=== PATIENT | male | born 1985 | race African-American/Black ===

== ENCOUNTER 2020-09-19 15:17 | Emergency (ER) | payer OTHER ==
[~2020-09-19 15:17] MED LIST: DIVA250T4 PO; QUET100T PO
== END 2020-09-19 15:37 | disposition left against medical advice (07) ==
LOC: ER 15:24
DX: Z53.21 Procedure and treatment not carried out due to patient leaving prior to being seen by health care provider (principal)

== ENCOUNTER 2020-10-17 13:54 | Emergency (ER) | payer OTHER ==
[~2020-10-17] VITALS: Ht 175.3 cm; Wt 45.4 kg
--- NOTE | 2020-10-17 14:40 | NUR ---
Pt directable/cooperative/compliant w/care. Denies any suicidal thoughts at this time states "depressed" Given lunch ate 100%.
--- NOTE | 2020-10-17 15:02 | NUR ---
phleb at bedside for blood drawn. Sent back to the waiting room, patient aware to inform nurses for any changes or needs.
[2020-10-17 15:13] LABS: BASOPHILS # (AUTO) 0.1 /CMM (0.0-0.2); BASOPHILS % (AUTO) 0.6 % (0.0-2.0); EOSINOPHILS % (AUTO) 1.6 % (0.0-6.0); HEMATOCRIT 44 % (39-51); HEMOGLOBIN 14.4 g/dL (13.5-17.5); LYMPHOCYTES # (AUTO) 2.1 /CMM (0.8-4.8); LYMPHOCYTES % (AUTO) 23.3 % (20.0-44.0); MEAN CORPUSCULAR HGB CONC 33 g/dl (31.0-36.0); MEAN CORPUSCULAR VOLUME 88 fL (80-96); MONOCYTES # (AUTO) 0.9 /CMM (0.1-1.30); NEUTROPHILS # (AUTO) 5.9 /CMM (1.8-8.9); NEUTROPHILS % (AUTO) 64.5 % (43.0-81.0); PLATELET COUNT (AUTO) 442 /CMM (150-450); RED BLOOD CELL COUNT(AUTO) 5.03 MIL/uL (4.5-6.0); WHITE BLOOD COUNT (AUTO) 9.2 K/uL (4.3-11.0)
[2020-10-17 15:46] LABS: CALCIUM, SERUM 9.2 mg/dL (8.5-10.1); CARBON DIOXIDE 29 mmol/L (21-32); CHLORIDE 106 mmol/L (98-107); CREATININE 0.8 mg/dL (0.6-1.3); GLUCOSE 90 mg/dL (74-106); POTASSIUM 4.1 mmol/L (3.5-5.1); SODIUM SERUM 143 mmol/L (136-145); UREA NITROGEN, BLOOD 12 mg/dL (7-18)
[2020-10-17 15:47] LABS: ALCOHOL, BLOOD < 3 mg/dL (0-0)
--- NOTE | 2020-10-17 15:58 | NUR ---
COVID RESULT: NEGATIVE
--- NOTE | 2020-10-17 17:00 | NUR ---
Sleeping soundly NO acute distress
--- NOTE | 2020-10-17 17:15 | NUR ---
FAXED CLINICALS AND FACESHEET TO [facility]
--- NOTE | 2020-10-17 18:15 | NUR ---
Called Nita from [facility] intake. Unaware of intake
--- NOTE | 2020-10-17 18:54 | NUR ---
Called Chaitanya Ingram. Will call back with update
--- NOTE | 2020-10-17 20:58 | NUR ---
TRANSFER INFORMATION: PT ACCEPTED AT [facility] PT WILL GO TO UNIT 2 ACCEPTING MD MERRILL PHONE# FOR REPORT
--- NOTE | 2020-10-17 21:28 | NUR ---
CALLED CALL THE CAR, WAS ON HOLD FOR OVER 30 MINUTES
--- NOTE | 2020-10-17 21:29 | NUR ---
CALLED [facility] FOR BLS TO [facility] ETA 2199
--- NOTE | 2020-10-17 22:01 | NUR ---
TRANSPORT AT BEDSIDE REPORT GIVEN TO EMT
--- NOTE | 2020-10-17 22:28 | NUR ---
REPORT GIVEN TO ZEESHAN WONG.
[2020-10-17 22:29] VITALS: BP 127/68
== END 2020-10-17 22:29 ==
LOC: ER 13:56
DX: F31.9 Bipolar disorder, unspecified (principal); Z91.14 Patient's other noncompliance with medication regimen; F17.210 Nicotine dependence, cigarettes, uncomplicated; F15.10 Other stimulant abuse, uncomplicated; Z59.0 Homelessness; F10.10 Alcohol abuse, uncomplicated; Y90.0 Blood alcohol level of less than 20 mg/100 ml; Z20.822 Contact with and (suspected) exposure to COVID-19
CPT/HCPCS: 36415; 80048; 80299; 80307; 80320; 85025; 87426; 99285; 99406; C9803; G0480

== ENCOUNTER 2020-11-15 09:50 | Emergency (ER) | payer OTHER ==
[~2020-11-15] VITALS: Ht 175.3 cm; Wt 68.0 kg
--- NOTE | 2020-11-15 09:50 | NUR ---
PT BIB SELF C/O DEPRESSED AND FEELING SUICIDAL, +PLAN, "JUMP OFF THE ROOF." PT IS AAOX4, NOT IN RESPIRATORY DISTRESS, V/S STABLE, KEPT RESTED AND COMFORTABLE. WILL CONTINUE TO MONITOR. Addendum: 11/15/20 at 2130 by [email or web address] Pictorious PHONE NUMBER IS
--- NOTE | 2020-11-15 10:08 | NUR ---
URINE SPECIMEN COLLECTED AND SENT TO LAB.
[2020-11-15 10:47] LABS: BILIRUBIN,URINE SMALL (NEGATIVE); COLOR,URINE YELLOW (YELLOW); LEUKOCYTE ESTERASE ,URINE Negative (NEGATIVE); NITRITE, URINE Negative (NEGATIVE); PROTEIN,URINE Trace mg/dl (NEGATIVE); UGLUCOSE Negative (NEGATIVE)
[2020-11-15 11:09] LABS: BASOPHILS % (AUTO) 0.5 % (0.0-2.0); EOSINOPHILS % (AUTO) 1.5 % (0.0-6.0); HEMATOCRIT 47 % (39-51); HEMOGLOBIN 15.4 g/dL (13.5-17.5); LYMPHOCYTES # (AUTO) 1.5 /CMM (0.8-4.8); LYMPHOCYTES % (AUTO) 22.5 % (20.0-44.0); MEAN CORPUSCULAR HGB CONC 33 g/dl (31.0-36.0); MEAN CORPUSCULAR VOLUME 89 fL (80-96); MONOCYTES # (AUTO) 0.7 /CMM (0.1-1.30); MONOCYTES % (AUTO) 10.7 % (2.0-12.0); NEUTROPHILS # (AUTO) 4.2 /CMM (1.8-8.9); NEUTROPHILS % (AUTO) 64.8 % (43.0-81.0); PLATELET COUNT (AUTO) 313 /CMM (150-450); RED BLOOD CELL COUNT(AUTO) 5.29 MIL/uL (4.5-6.0); WHITE BLOOD COUNT (AUTO) 6.5 K/uL (4.3-11.0)
[2020-11-15 11:10] LABS: BACTERIA,URINE Rare /HPF (None Seen); RBC,URINE NONE SEEN /HPF (0-2); SQUAMOUS EPITHELIAL CELL,UR Few /HPF (None Seen); WBC,URINE NONE SEEN /HPF (0-3)
[2020-11-15 11:18] LABS: CARBON DIOXIDE 26 mmol/L (21-32); CHLORIDE 104 mmol/L (98-107); CREATININE 0.9 mg/dL (0.6-1.3); GLUCOSE 89 mg/dL (74-106); POTASSIUM 4.2 mmol/L (3.5-5.1); SODIUM SERUM 140 mmol/L (136-145); UREA NITROGEN, BLOOD 14 mg/dL (7-18)
[2020-11-15 11:23] LABS: ACETAMINOPHEN < 2 ug/ml (10-30); ALANINE AMINOTRANSFERASE 42 U/L (12-78); ALBUMIN 4.3 g/dL (3.4-5.0); ALCOHOL, BLOOD < 3 mg/dL (0-0); ALKALINE PHOSPHATASE 91 U/L (46-116); ASPARTATE AMINOTRANSFERASE 34 U/L (15-37); BILIRUBIN,DIRECT 0.2 mg/dL (0.0-0.2); BILIRUBIN,TOTAL 1.1 mg/dL (0.2-1.0); TOTAL PROTEIN, SERUM 7.9 g/dL (6.4-8.2)
--- NOTE | 2020-11-15 12:08 | NUR ---
LAB CALLED PT COVID RESULT NEGATIVE (-).
--- NOTE | 2020-11-15 19:42 | NUR ---
[facility]. PER ART, PT ACCEPTED AWAITING TRANSFER INFO.
--- NOTE | 2020-11-15 19:50 | NUR ---
The patient is accepted to [facility] under [facility]. Strong Unit 2. For report call [phone]
--- NOTE | 2020-11-15 19:51 | NUR ---
[facility]
--- NOTE | 2020-11-15 20:20 | NUR ---
CALL THE CAR CALLED. CONFIRMATION # [id number]
--- NOTE | 2020-11-15 21:29 | NUR ---
RECEIVED CALL FROM [facility] REPORTING THAT WEARING APPAREL ASSEMBLER WILL BE HERE AROUND 22:30
--- NOTE | 2020-11-15 22:20 | NUR ---
Gladis thompson in [facility] - 11/15/20 at 2226 by JENS Malaika at the bedside.
--- NOTE | 2020-11-16 00:22 | NUR ---
REPORT GIVEN TO SURENDRA ROSADO FOR RAUL
[2020-11-16 00:24] VITALS: BP 121/84
--- NOTE | 2020-11-16 00:30 | NUR ---
PT TRANSFERRED TO [facility] IN STABLE CONDITION. VSS.
== END 2020-11-16 00:56 ==
LOC: ER 09:55
DX: F99 Mental disorder, not otherwise specified (principal); R45.851 Suicidal ideations; Z59.0 Homelessness; F31.9 Bipolar disorder, unspecified; Z79.899 Other long term (current) drug therapy; Z20.822 Contact with and (suspected) exposure to COVID-19
CPT/HCPCS: 36415; 80048; 80076; 80299; 80307; 80320; 81001; 85025; 87426; 99285; C9803; G0480

== ENCOUNTER 2020-12-02 19:36 | Emergency (ER) | payer OTHER ==
[~2020-12-02] VITALS: Ht 175.3 cm; Wt 68.0 kg
[2020-12-02 20:28] LABS: BASOPHILS % (AUTO) 0.5 % (0.0-2.0); EOSINOPHILS % (AUTO) 1.4 % (0.0-6.0); HEMATOCRIT 44 % (39-51); HEMOGLOBIN 14.5 g/dL (13.5-17.5); LYMPHOCYTES # (AUTO) 2.5 /CMM (0.8-4.8); LYMPHOCYTES % (AUTO) 33.6 % (20.0-44.0); MEAN CORPUSCULAR HGB CONC 33 g/dl (31.0-36.0); MEAN CORPUSCULAR VOLUME 90 fL (80-96); MONOCYTES # (AUTO) 1.1 /CMM (0.1-1.30); MONOCYTES % (AUTO) 15.1 % (2.0-12.0); NEUTROPHILS # (AUTO) 3.7 /CMM (1.8-8.9); NEUTROPHILS % (AUTO) 49.4 % (43.0-81.0); PLATELET COUNT (AUTO) 391 /CMM (150-450); RED BLOOD CELL COUNT(AUTO) 4.87 MIL/uL (4.5-6.0); WHITE BLOOD COUNT (AUTO) 7.5 K/uL (4.3-11.0)
[2020-12-02 20:35] LABS: BILIRUBIN,URINE MODERATE (NEGATIVE); COLOR,URINE DARK YELLOW (YELLOW); LEUKOCYTE ESTERASE ,URINE NEGATIVE (NEGATIVE); NITRITE, URINE NEGATIVE (NEGATIVE); PROTEIN,URINE NEGATIVE (NEGATIVE); UGLUCOSE NEGATIVE (NEGATIVE)
[2020-12-02 20:45] LABS: BACTERIA,URINE Rare /HPF (None Seen); RBC,URINE 0-2 /HPF (0-2); SQUAMOUS EPITHELIAL CELL,UR Rare /HPF (None Seen); WBC,URINE 0-2 /HPF (0-3)
[2020-12-02 21:43] LABS: ALBUMIN 3.8 g/dL (3.4-5.0); CARBON DIOXIDE 29 mmol/L (21-32); CHLORIDE 104 mmol/L (98-107); CREATININE 1.1 mg/dL (0.6-1.3); GLUCOSE 189 mg/dL (74-106); POTASSIUM 3.8 mmol/L (3.5-5.1); SODIUM SERUM 141 mmol/L (136-145); UREA NITROGEN, BLOOD 14 mg/dL (7-18)
[2020-12-02 22:03] LABS: ALANINE AMINOTRANSFERASE 33 U/L (12-78); ALCOHOL, BLOOD < 3 mg/dL (0-0); ALKALINE PHOSPHATASE 83 U/L (46-116); ASPARTATE AMINOTRANSFERASE 31 U/L (15-37); BILIRUBIN,DIRECT 0.1 mg/dL (0.0-0.2); BILIRUBIN,TOTAL 0.6 mg/dL (0.2-1.0); TOTAL PROTEIN, SERUM 7.1 g/dL (6.4-8.2)
[2020-12-02 22:04] LABS: ACETAMINOPHEN < 0 ug/ml (10-30)
[2020-12-03 03:33] VITALS: BP 132/70
== END 2020-12-03 07:31 ==
LOC: ER 19:40
DX: R45.851 Suicidal ideations (principal); F19.10 Other psychoactive substance abuse, uncomplicated; F31.9 Bipolar disorder, unspecified; Z90.81 Acquired absence of spleen; Z91.14 Patient's other noncompliance with medication regimen; Z59.0 Homelessness; F17.200 Nicotine dependence, unspecified, uncomplicated; Z79.899 Other long term (current) drug therapy; Z20.822 Contact with and (suspected) exposure to COVID-19
CPT/HCPCS: 36415; 80048; 80076; 80143; 80307; 80320; 81001; 85025; 87426; 99285; C9803; A6403; G0480

== ENCOUNTER 2021-01-23 02:38 | Emergency (ER) | payer OTHER ==
--- NOTE | 2021-01-23 03:02 | NUR ---
CALLED TO TRIAGE, NOT IN WAITING ROOM.
--- NOTE | 2021-01-23 03:20 | NUR ---
CALLED FOR TRIAGE, NOT IN WAITING ROOM.
--- NOTE | 2021-01-23 03:46 | NUR ---
PT REFUSED TO BE SEEN, REQUESTED FOR A BLANKET.
== END 2021-01-23 03:48 | disposition home or self-care (01) ==
LOC: ER 02:42
DX: Z53.21 Procedure and treatment not carried out due to patient leaving prior to being seen by health care provider (principal)

== ENCOUNTER 2021-01-24 07:02 | Emergency (ER) | payer OTHER ==
[~2021-01-24] VITALS: Ht 175.3 cm; Wt 68.0 kg
--- NOTE | 2021-01-24 07:14 | NUR ---
ER PHLEB AT BEDSIDE FOR BLOOD DRAW
--- NOTE | 2021-01-24 07:14 | NUR ---
PT AAOX4, BIBSELF C/O SI WITH PLAN TO JUMP IN FRONT OF TRAFFIC. -HI. REQUESTING VOLUNTARY PSYCH ADMISSION AT [facility]. PLACED IN BED 13 IN GOWN, ON MONITOR, AND PULSE OX. BELONINGS PLACED IN LOCKER. PT UNABLE TO PROVIDE URINE SAMPLE AT THIS TIME. AWAITING ER MD FOR EVAL AND ORDERS.
--- NOTE | 2021-01-24 07:38 | NUR ---
COVID SPECIMEN OBTAINED AND SENT TO LAB.
[2021-01-24 08:00] LABS: BASOPHILS # (AUTO) 0.1 K/uL (0.0-0.2); BASOPHILS % (AUTO) 0.6 % (0.0-2.0); EOSINOPHILS % (AUTO) 1.1 % (0.0-6.0); HEMATOCRIT 44 % (39-51); HEMOGLOBIN 14.3 g/dL (13.5-17.5); LYMPHOCYTES # (AUTO) 1.4 K/uL (0.8-4.8); LYMPHOCYTES % (AUTO) 14.2 % (20.0-44.0); MEAN CORPUSCULAR HGB CONC 33 g/dl (31.0-36.0); MEAN CORPUSCULAR VOLUME 91 fL (80-96); MONOCYTES # (AUTO) 0.9 K/uL (0.1-1.30); MONOCYTES % (AUTO) 9.6 % (2.0-12.0); NEUTROPHILS # (AUTO) 7.4 K/uL (1.8-8.9); NEUTROPHILS % (AUTO) 74.5 % (43.0-81.0); PLATELET COUNT (AUTO) 304 K/uL (150-450); RED BLOOD CELL COUNT(AUTO) 4.79 MIL/uL (4.5-6.0); WHITE BLOOD COUNT (AUTO) 9.9 K/uL (4.3-11.0)
[2021-01-24 08:10] LABS: ACETAMINOPHEN < 2 ug/ml (10-30); ALANINE AMINOTRANSFERASE 25 U/L (12-78); ALBUMIN 3.5 g/dL (3.4-5.0); ALCOHOL, BLOOD < 3 mg/dL (0-0); ALKALINE PHOSPHATASE 91 U/L (46-116); ASPARTATE AMINOTRANSFERASE 19 U/L (15-37); BILIRUBIN,DIRECT 0.1 mg/dL (0.0-0.2); BILIRUBIN,TOTAL 0.4 mg/dL (0.2-1.0); CALCIUM, SERUM 8.5 mg/dL (8.5-10.1); CARBON DIOXIDE 27 mmol/L (21-32); CHLORIDE 106 mmol/L (98-107); CREATININE 0.9 mg/dL (0.6-1.3); GLUCOSE 101 mg/dL (74-106); POTASSIUM 3.8 mmol/L (3.5-5.1); SODIUM SERUM 141 mmol/L (136-145); TOTAL PROTEIN, SERUM 6.6 g/dL (6.4-8.2); UREA NITROGEN, BLOOD 7 mg/dL (7-18)
[2021-01-24 09:00] LABS: BILIRUBIN,URINE Negative (NEGATIVE); COLOR,URINE YELLOW (YELLOW); LEUKOCYTE ESTERASE ,URINE Negative (NEGATIVE); NITRITE, URINE Negative (NEGATIVE); PROTEIN,URINE Negative (NEGATIVE); UGLUCOSE Negative (NEGATIVE)
[2021-01-24 09:05] LABS: BACTERIA,URINE Rare /HPF (None Seen); RBC,URINE NONE SEEN /HPF (0-2); SQUAMOUS EPITHELIAL CELL,UR Few /HPF (None Seen); WBC,URINE NONE SEEN /HPF (0-3)
--- NOTE | 2021-01-24 12:10 | NUR ---
LUNCH TRAY PROVIDED.
--- NOTE | 2021-01-24 16:32 | NUR ---
ASSESSED PT ON BED ASLEEP NOT IN RESPIRATORY DISTRESS, V/S STABLE, KEPT RESTED AND COMFORTABLE. WILL CONTINUE TO MONITOR.
--- NOTE | 2021-01-24 17:09 | NUR ---
[facility]
--- NOTE | 2021-01-24 19:43 | NUR ---
accepted at [facility] under Dr. Lerner. call report [phone] ext [phone]
--- NOTE | 2021-01-24 19:48 | NUR ---
CALLED [facility] FOR TRANSPORT ETA [phone] PER ROBERTO
--- NOTE | 2021-01-24 21:22 | NUR ---
REPORT GIVEN TO MERLYN NURSE AT [facility]
[2021-01-24 22:10] VITALS: BP 122/70
--- NOTE | 2021-01-24 22:30 | NUR ---
PT LEFT [facility], REPORT GIVEN TO STAFF. NOT IN ACUTE DISTRESS, ALL BELONGINGS WITH TRANSPORT
== END 2021-01-24 23:06 ==
LOC: ER 07:10
DX: R45.851 Suicidal ideations (principal); F19.10 Other psychoactive substance abuse, uncomplicated; Z59.0 Homelessness; Z20.822 Contact with and (suspected) exposure to COVID-19; F17.200 Nicotine dependence, unspecified, uncomplicated; F31.9 Bipolar disorder, unspecified
CPT/HCPCS: 36415; 80048; 80076; 80143; 80307; 80320; 81001; 85025; 87426; 99285; C9803; G0480

== ENCOUNTER 2021-02-20 09:43 | Emergency (ER) | payer OTHER ==
[~2021-02-20] VITALS: Ht 180.3 cm; Wt 68.0 kg
--- NOTE | 2021-02-20 10:30 | NUR ---
Pt easily directable and cooperative. Asking for food. Given breakfast ate 100%. Medical clearance protocol (UA/Labs) for voluntary admit to psych facility initiated
[2021-02-20 10:50] LABS: BASOPHILS # (AUTO) 0.1 K/uL (0.0-0.2); HEMOGLOBIN 14.7 g/dL (13.5-17.5); LYMPHOCYTES # (AUTO) 1.8 K/uL (0.8-4.8); NEUTROPHILS # (AUTO) 5.5 K/uL (1.8-8.9); WHITE BLOOD COUNT (AUTO) 7.9 K/uL (4.3-11.0)
[2021-02-20 10:53] LABS: BASOPHILS % (AUTO) 1.1 % (0.0-2.0); EOSINOPHILS % (AUTO) 0.8 % (0.0-6.0); HEMATOCRIT 44 % (39-51); MEAN CORPUSCULAR HGB CONC 34 g/dl (31.0-36.0); MEAN CORPUSCULAR VOLUME 90 fL (80-96); MONOCYTES # (AUTO) 0.5 K/uL (0.1-1.30); MONOCYTES % (AUTO) 5.8 % (2.0-12.0); NEUTROPHILS % (AUTO) 69.3 % (43.0-81.0); PLATELET COUNT (AUTO) 483 K/uL (150-450); RED BLOOD CELL COUNT(AUTO) 4.89 MIL/uL (4.5-6.0)
[2021-02-20 11:01] LABS: BILIRUBIN,URINE Negative (NEGATIVE); COLOR,URINE YELLOW (YELLOW); LEUKOCYTE ESTERASE ,URINE Negative (NEGATIVE); NITRITE, URINE Negative (NEGATIVE); PROTEIN,URINE Negative (NEGATIVE); UGLUCOSE Negative (NEGATIVE)
[2021-02-20 11:02] LABS: CARBON DIOXIDE 27 mmol/L (21-32); CHLORIDE 103 mmol/L (98-107); GLUCOSE 224 mg/dL (74-106); SODIUM SERUM 140 mmol/L (136-145); UREA NITROGEN, BLOOD 10 mg/dL (7-18)
[2021-02-20 11:07] LABS: ACETAMINOPHEN 0 ug/ml (10-30); ALANINE AMINOTRANSFERASE 21 U/L (12-78); ALBUMIN 3.6 g/dL (3.4-5.0); ALCOHOL, BLOOD < 3 mg/dL (0-0); ALKALINE PHOSPHATASE 112 U/L (46-116); ASPARTATE AMINOTRANSFERASE 14 U/L (15-37); BILIRUBIN,DIRECT 0.1 mg/dL (0.0-0.2); BILIRUBIN,TOTAL 0.4 mg/dL (0.2-1.0); TOTAL PROTEIN, SERUM 7.4 g/dL (6.4-8.2)
[2021-02-20 11:20] LABS: BACTERIA,URINE Few /HPF (None Seen); MUCUS,URINE Few /LPF (None Seen); RBC,URINE 0-2 /HPF (0-2); SQUAMOUS EPITHELIAL CELL,UR Few /HPF (None Seen); WBC,URINE 0-2 /HPF (0-3)
--- NOTE | 2021-02-20 11:34 | NUR ---
Product Marketer Consultation: Product Marketer consultation requested for SI. Patient is a 35 year old male. Per ED summary report, patient came to the ED reporting suicidal thoughts of wanting to get hit by a car. This PHOTOGRAMMETRY AIRPLANE PILOT met with patient in the ED. Patient was cooperative and receptive to speaking with this PHOTOGRAMMETRY AIRPLANE PILOT. Patient reports having suicidal thoughts of wanting to run into traffic and get hit by a car. Patient denies HI. Patient denies hallucinations. Patient is homeless, and presents unkempt. Patient reports hx of psychiatric hospitalizations, and stated that he wants to go to a psychiatric hospital again. Patient expressed agreement for voluntary admission to an inpatient psychiatric hospital. Patient reports being diagnosed with Bipolar Disorder, and being prescribed Seroquel, but expressed not being consistent with taking his medication. 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 Per patient's toxicology report, patient is positive for amphetamines and marijuana. This PHOTOGRAMMETRY AIRPLANE PILOT offered patient homeless community resources, and patient was in agreement to receive these resources. PLAN: This PHOTOGRAMMETRY AIRPLANE PILOT to refer patient to [facility] for voluntary psychiatric inpatient admission, and will fax patient's clinicals to [facility]. This PHOTOGRAMMETRY AIRPLANE PILOT will provide patient with homeless community resources.
--- NOTE | 2021-02-20 11:42 | NUR ---
Contact Person note: This AUTO REFINISHER faxed patient's clinicals to Delbert at [facility], tel # [phone], fax # [phone]. Pending admission to [facility]. Once admitted, patient will be transported via ambulance.
[2021-02-20 11:46] LABS: EOSINOPHILS % (MANUAL) 1 % (0-4); LYMPHOCYTES % (MANUAL) 23 % (16-48); MONOCYTES % (MANUAL) 4 % (0-11.0); NEUTROPHILS % (MANUAL) 72 (42-76)
--- NOTE | 2021-02-20 12:16 | NUR ---
Collection Support Specialist note: This WATER FILTERER HELPER met with the patient and provided him with the homeless resource packet, which includes a list of homeless shelters, places for meals and showers, food pantries, resources for medical clinics, mental health clinics, pharmacies, and substance abuse treatment programs. Patient signed the homeless patient waiver form. This WATER FILTERER HELPER gave the homeless patient waiver form to MEREDITH Schmidt to file in patient's chart. MEREDITH Schmidt also informed that this WATER FILTERER HELPER has faxed all clinicals to [facility] for admission. Roxana stated she would follow-up.
--- NOTE | 2021-02-20 13:00 | NUR ---
Dozing on/off NO obvious distress. Given Lunch Ate 100%
--- NOTE | 2021-02-20 14:17 | NUR ---
CALLED [facility] FOR TRANSPORT TO [facility]. ETA 45-60 MINUTES.
--- NOTE | 2021-02-20 14:38 | NUR ---
REPORT GIVEN TO NURSE BROOKS
--- NOTE | 2021-02-20 15:17 | NUR ---
Transfer Information: Voluntary Transport to Psych facility So[facility] Dereck Olson MD: Shane Report to: Codey Condition: Stable,VSS Transporting Unit: [facility], EMT Abraham Pt aware of transfer and concurs w/plan of care
[2021-02-20 15:19] VITALS: BP 143/81
== END 2021-02-20 15:20 ==
LOC: ER 14:12
DX: R45.851 Suicidal ideations (principal); F31.9 Bipolar disorder, unspecified; F19.10 Other psychoactive substance abuse, uncomplicated; F15.10 Other stimulant abuse, uncomplicated; F12.10 Cannabis abuse, uncomplicated; Z59.0 Homelessness; R73.9 Hyperglycemia, unspecified; Z20.822 Contact with and (suspected) exposure to COVID-19
CPT/HCPCS: 36415; 80048; 80076; 80143; 80307; 80320; 81001; 85007; 85025; 87426; 99285; C9803; G0480

== ENCOUNTER 2021-03-11 12:13 | Emergency (ER) | payer OTHER ==
[~2021-03-11] VITALS: Ht 175.3 cm; Wt 68.0 kg
--- NOTE | 2021-03-11 12:43 | NUR ---
CALLED IN ED WAITING ROOM. NO RESPONSE.
[2021-03-11 13:33] LABS: BASOPHILS % (AUTO) 0.7 % (0.0-2.0); EOSINOPHILS % (AUTO) 2.3 % (0.0-6.0); HEMATOCRIT 41 % (39-51); HEMOGLOBIN 13.5 g/dL (13.5-17.5); LYMPHOCYTES # (AUTO) 1.8 K/uL (0.8-4.8); LYMPHOCYTES % (AUTO) 29.9 % (20.0-44.0); MEAN CORPUSCULAR HGB CONC 33 g/dl (31.0-36.0); MEAN CORPUSCULAR VOLUME 91 fL (80-96); MONOCYTES # (AUTO) 0.7 K/uL (0.1-1.30); MONOCYTES % (AUTO) 11.3 % (2.0-12.0); NEUTROPHILS # (AUTO) 3.3 K/uL (1.8-8.9); NEUTROPHILS % (AUTO) 55.8 % (43.0-81.0); PLATELET COUNT (AUTO) 369 K/uL (150-450); RED BLOOD CELL COUNT(AUTO) 4.52 MIL/uL (4.5-6.0); WHITE BLOOD COUNT (AUTO) 5.9 K/uL (4.3-11.0)
[2021-03-11 14:05] VITALS: BP 126/84
[2021-03-11 14:19] LABS: ALANINE AMINOTRANSFERASE 33 U/L (12-78); ALBUMIN 3.8 g/dL (3.4-5.0); ALKALINE PHOSPHATASE 84 U/L (46-116); ASPARTATE AMINOTRANSFERASE 22 U/L (15-37); BILIRUBIN,DIRECT 0.1 mg/dL (0.0-0.2); BILIRUBIN,TOTAL 0.4 mg/dL (0.2-1.0); CALCIUM, SERUM 8.4 mg/dL (8.5-10.1); CARBON DIOXIDE 30 mmol/L (21-32); CHLORIDE 106 mmol/L (98-107); GLUCOSE 93 mg/dL (74-106); POTASSIUM 3.7 mmol/L (3.5-5.1); SODIUM SERUM 143 mmol/L (136-145); UREA NITROGEN, BLOOD 15 mg/dL (7-18)
[2021-03-11 14:22] LABS: ACETAMINOPHEN 0 ug/ml (10-30)
[2021-03-11 15:02] LABS: ALCOHOL, BLOOD < 3 mg/dL (0-0)
== END 2021-03-11 14:06 | disposition left against medical advice (07) ==
LOC: ER 12:16
DX: R45.851 Suicidal ideations (principal); F32.9 Major depressive disorder, single episode, unspecified; F17.200 Nicotine dependence, unspecified, uncomplicated; Z59.0 Homelessness; Z79.899 Other long term (current) drug therapy
CPT/HCPCS: 36415; 80048-TC; 80076-TC; 85025-TC; G0480

== ENCOUNTER 2021-03-11 16:47 | Emergency (ER) | payer OTHER ==
[~2021-03-11] VITALS: Ht 175.3 cm; Wt 74.4 kg
--- NOTE | 2021-03-11 17:10 | NUR ---
MINERVA KIM AT BEDSIDE FOR EVAL.
--- NOTE | 2021-03-11 17:18 | NUR ---
SELF PRESENTS TO ED REQUESTING FOR VOLUNTARY PSYCH ADMISSION TO [facility]. C/O SUICIDAL IDEATION X "FOR A WHILE NOW" W/ PLAN TO RUN INTO TRAFFIC. DENIES HI. DENIES ANY MEDICAL COMPLAINT AT THIS TIME. STABLE VITALS. AWAITING MD MCFARLAND.
--- NOTE | 2021-03-11 18:08 | NUR ---
ECONOMICS ANALYST AT BEDSIDE FOR BLOOD DRAW.
--- NOTE | 2021-03-11 18:12 | NUR ---
COVID SWAB DONE AND SENT TO LAB
[2021-03-11 18:29] LABS: BILIRUBIN,URINE SMALL (NEGATIVE); COLOR,URINE YELLOW (YELLOW); LEUKOCYTE ESTERASE ,URINE NEGATIVE (NEGATIVE); NITRITE, URINE NEGATIVE (NEGATIVE); PROTEIN,URINE NEGATIVE (NEGATIVE); UGLUCOSE NEGATIVE (NEGATIVE)
[2021-03-11 18:31] LABS: BASOPHILS % (AUTO) 0.6 % (0.0-2.0); EOSINOPHILS % (AUTO) 4.2 % (0.0-6.0); HEMATOCRIT 41 % (39-51); HEMOGLOBIN 13.3 g/dL (13.5-17.5); LYMPHOCYTES # (AUTO) 2.8 K/uL (0.8-4.8); MEAN CORPUSCULAR HGB CONC 33 g/dl (31.0-36.0); MEAN CORPUSCULAR VOLUME 92 fL (80-96); MONOCYTES # (AUTO) 0.8 K/uL (0.1-1.30); MONOCYTES % (AUTO) 11.4 % (2.0-12.0); NEUTROPHILS # (AUTO) 2.8 K/uL (1.8-8.9); NEUTROPHILS % (AUTO) 41.8 % (43.0-81.0); PLATELET COUNT (AUTO) 364 K/uL (150-450); RED BLOOD CELL COUNT(AUTO) 4.41 MIL/uL (4.5-6.0); WHITE BLOOD COUNT (AUTO) 6.7 K/uL (4.3-11.0)
[2021-03-11 18:50] LABS: ALANINE AMINOTRANSFERASE 26 U/L (12-78); ALBUMIN 3.5 g/dL (3.4-5.0); ALKALINE PHOSPHATASE 81 U/L (46-116); ASPARTATE AMINOTRANSFERASE 23 U/L (15-37); BILIRUBIN,DIRECT 0.1 mg/dL (0.0-0.2); BILIRUBIN,TOTAL 0.3 mg/dL (0.2-1.0); TOTAL PROTEIN, SERUM 6.7 g/dL (6.4-8.2)
[2021-03-11 18:54] LABS: CALCIUM, SERUM 8.4 mg/dL (8.5-10.1); CARBON DIOXIDE 27 mmol/L (21-32); CHLORIDE 104 mmol/L (98-107); CREATININE 0.9 mg/dL (0.6-1.3); GLUCOSE 168 mg/dL (74-106); POTASSIUM 3.8 mmol/L (3.5-5.1); SODIUM SERUM 140 mmol/L (136-145); UREA NITROGEN, BLOOD 15 mg/dL (7-18)
[2021-03-11 19:00] LABS: ALCOHOL, BLOOD < 3 mg/dL (0-0)
[2021-03-11 19:33] LABS: ACETAMINOPHEN < 2 ug/ml (10-30)
--- NOTE | 2021-03-11 22:14 | NUR ---
FACESHEET AND CLINICALS FAXED TO [facility].
--- NOTE | 2021-03-11 23:25 | NUR ---
PT ACCEPTED TO [facility] BY [facility] MERRILL. # FOR REPORT [phone]
--- NOTE | 2021-03-11 23:37 | NUR ---
[facility] CALL THE CAR CALLED FOR TRANSPORT. TRIP#[id number]
--- NOTE | 2021-03-11 23:43 | NUR ---
[facility] ETA 0110
--- NOTE | 2021-03-12 02:18 | NUR ---
REPORT GIVEN TO GISELL HARPER FOR CONTINUATION OF CARE.
--- NOTE | 2021-03-12 03:55 | NUR ---
[facility] AT BED SIDE TO FREIGHT COORDINATOR THE PT. REPORT GIVEN
[2021-03-12 03:56] VITALS: BP 135/88
== END 2021-03-12 03:57 ==
LOC: ER 16:51
DX: R45.851 Suicidal ideations (principal); F31.9 Bipolar disorder, unspecified; F19.10 Other psychoactive substance abuse, uncomplicated; Z20.822 Contact with and (suspected) exposure to COVID-19; Z59.0 Homelessness
CPT/HCPCS: 36415; 80048; 80076; 80143; 80307; 80320; 81003; 85025; 87426; 99285; C9803; G0480

== ENCOUNTER 2021-04-13 12:16 | Emergency (ER) | payer OTHER ==
[~2021-04-13] VITALS: Ht 170.2 cm; Wt 74.8 kg
[2021-04-13 12:58] LABS: BILIRUBIN,URINE Negative (NEGATIVE); COLOR,URINE YELLOW (YELLOW); LEUKOCYTE ESTERASE ,URINE Negative (NEGATIVE); NITRITE, URINE Negative (NEGATIVE); PROTEIN,URINE Negative (NEGATIVE); UGLUCOSE Negative (NEGATIVE)
[2021-04-13 13:09] LABS: BACTERIA,URINE Rare /HPF (None Seen); RBC,URINE 0-2 /HPF (0-2); SQUAMOUS EPITHELIAL CELL,UR 0-2 /HPF (None Seen); WBC,URINE 0-2 /HPF (0-3)
[2021-04-13 13:11] LABS: BASOPHILS # (AUTO) 0.1 K/uL (0.0-0.2); BASOPHILS % (AUTO) 0.9 % (0.0-2.0); EOSINOPHILS % (AUTO) 0.8 % (0.0-6.0); HEMATOCRIT 44 % (39-51); HEMOGLOBIN 14.5 g/dL (13.5-17.5); LYMPHOCYTES # (AUTO) 2.1 K/uL (0.8-4.8); LYMPHOCYTES % (AUTO) 20.9 % (20.0-44.0); MEAN CORPUSCULAR HGB CONC 33 g/dl (31.0-36.0); MEAN CORPUSCULAR VOLUME 91 fL (80-96); MONOCYTES % (AUTO) 9.6 % (2.0-12.0); NEUTROPHILS # (AUTO) 6.8 K/uL (1.8-8.9); NEUTROPHILS % (AUTO) 67.8 % (43.0-81.0); PLATELET COUNT (AUTO) 378 K/uL (150-450); RED BLOOD CELL COUNT(AUTO) 4.87 MIL/uL (4.5-6.0)
[2021-04-13 13:21] LABS: CALCIUM, SERUM 8.7 mg/dL (8.5-10.1); CARBON DIOXIDE 28 mmol/L (21-32); CHLORIDE 105 mmol/L (98-107); CREATININE 0.9 mg/dL (0.6-1.3); GLUCOSE 90 mg/dL (74-106); POTASSIUM 3.9 mmol/L (3.5-5.1); SODIUM SERUM 140 mmol/L (136-145); UREA NITROGEN, BLOOD 9 mg/dL (7-18)
[2021-04-13 13:34] LABS: ALANINE AMINOTRANSFERASE 24 U/L (12-78); ALBUMIN 3.6 g/dL (3.4-5.0); ALCOHOL, BLOOD < 3 mg/dL (0-0); ALKALINE PHOSPHATASE 98 U/L (46-116); BILIRUBIN,DIRECT 0.1 mg/dL (0.0-0.2); BILIRUBIN,TOTAL 0.6 mg/dL (0.2-1.0); TOTAL PROTEIN, SERUM 7.3 g/dL (6.4-8.2)
[2021-04-13 13:42] LABS: ACETAMINOPHEN < 10 ug/ml (10-30)
[2021-04-13 13:55] LABS: ASPARTATE AMINOTRANSFERASE 19 U/L (15-37)
--- NOTE | 2021-04-13 15:29 | NUR ---
Patient came in to the er c/o suicidal ideation with plan to cut wrist. Requesting vol admission to [facility]. On room air, breathign evenly and unlabored. Kept comfortable, will continue to monitor accordingly.
--- NOTE | 2021-04-13 16:08 | NUR ---
FAXED FACE SHEET AND LABS TO [facility].
--- NOTE | 2021-04-13 22:35 | NUR ---
SPOKE TO ART AT [facility]. STILL WORKING ON THE ACCEPTANCE
--- NOTE | 2021-04-13 23:18 | NUR ---
pt sitting quietly watching tv. vss
--- NOTE | 2021-04-14 00:50 | NUR ---
Patient is resting comfortably in bed with eyes closed. Easily aroused. VSS
--- NOTE | 2021-04-14 01:30 | NUR ---
pt sitting quietly watching tv. vss
--- NOTE | 2021-04-14 02:25 | NUR ---
pt sitting quietly watching tv. vss
--- NOTE | 2021-04-14 04:24 | NUR ---
pt sleeping, attached to monitor and pox. vss
--- NOTE | 2021-04-14 06:48 | NUR ---
pt sleeping, attached to monitor and pox
--- NOTE | 2021-04-14 10:13 | NUR ---
FAXED COVID RESULT TO INTAKE
--- NOTE | 2021-04-14 10:44 | NUR ---
AWAITING ACCEPTANCE TO [facility] UNDER REVIEW PER LEXI.
--- NOTE | 2021-04-14 11:08 | NUR ---
PT ACCEPTED TO [facility] PT STATES I [facility] GO [facility]. AWAITING ACCEPTANCE.
--- NOTE | 2021-04-14 14:55 | NUR ---
[facility] called [facility] reharding status of admission and they request COVID test results. [facility] faxed covid results. Pt. has been accepted and they will call ED with details of admission.
--- NOTE | 2021-04-14 15:05 | NUR ---
going to [facility] under [facility] dubose
--- NOTE | 2021-04-14 15:05 | NUR ---
rob to unit II. [phone] ext [phone]
--- NOTE | 2021-04-14 15:06 | NUR ---
[facility] CALLED WITH ETA OF 45 MINS PER DONOVAN.
--- NOTE | 2021-04-14 15:30 | NUR ---
REPORT GIVEN TO CHAI HARPER. AWAITING TRANSFER TO FLOOR.
[2021-04-14 15:46] VITALS: BP 132/75
== END 2021-04-14 16:00 ==
LOC: ER 12:17
DX: F31.9 Bipolar disorder, unspecified (principal); R45.851 Suicidal ideations; Z59.00 Homelessness unspecified; Z20.822 Contact with and (suspected) exposure to COVID-19; F19.90 Other psychoactive substance use, unspecified, uncomplicated
CPT/HCPCS: 36415; 80048; 80076; 80143; 80307; 80320; 81001; 85025; 87426; 99285; C9803; G0480

== ENCOUNTER 2021-04-23 16:46 | Emergency (ER) | payer OTHER ==
[~2021-04-23] VITALS: Ht 175.3 cm; Wt 65.8 kg
--- NOTE | 2021-04-23 18:42 | NUR ---
CALLED [phone] TO MAKE A MANDATED REPORT. SPOKE WITH FIREFIGHTING EQUIPMENT SPECIALIST 550
[2021-04-23] MEDS ORDERED: ACETAMINOPHEN ES 500 MG TABLET ONE (18:45)
[2021-04-23] MEDS ORDERED: TDAP [DIPH/PERTUSSIS/TET] 0.5 ML VIAL IM ONE ×2 (18:46→21:08)
[2021-04-23] MEDS ORDERED: LIDOCAINE 1%-EPI 1:100,000 20 ML VIAL ONE (18:50)
[2021-04-23] MEDS: TDAP [DIPH/PERTUSSIS/TET] 0.5 ML VIAL IM ONE (18:50)
[2021-04-23] MEDS: ACETAMINOPHEN ES 500 MG TABLET PO ONE (18:52)
--- NOTE | 2021-04-23 19:14 | NUR ---
PA AT BEDSIDE
[2021-04-23] MEDS ORDERED: AMOX-430 PO (19:25)
[2021-04-23] MEDS ORDERED: ACET-2605 PO (19:25)
[2021-04-23] MEDS ORDERED: AMOX/CLAVULANATE 875 MG TABLET ONE ×2 (19:29→19:38)
[2021-04-23] MEDS: AMOX/CLAVULANATE 875 MG TABLET PO ONE (19:30)
[2021-04-23 19:33] VITALS: BP 138/90
--- NOTE | 2021-04-23 19:33 | NUR ---
Patient discharged to home in stable condition. Written and verbal after care instructions given. Patient verbalizes understanding of instruction.
== END 2021-04-23 20:05 | disposition home or self-care (01) ==
LOC: ER 16:46
DX: S02.121A Fracture of orbital roof, right side, initial encounter for closed fracture (principal); S01.81XA Laceration without foreign body of other part of head, initial encounter; H11.31 Conjunctival hemorrhage, right eye; F32.9 Major depressive disorder, single episode, unspecified; F17.200 Nicotine dependence, unspecified, uncomplicated; Z59.00 Homelessness unspecified; Z79.899 Other long term (current) drug therapy; Y08.89XA Assault by other specified means, initial encounter; Y93.89 Activity, other specified; Y92.89 Other specified places as the place of occurrence of the external cause; Y99.8 Other external cause status
CPT/HCPCS: 12013; 70450; 70486; 90471; 90715; 99285; J3490

== ENCOUNTER 2021-04-24 07:13 | Emergency (ER) | payer OTHER ==
[~2021-04-24] VITALS: Ht 175.3 cm; Wt 56.7 kg
[~2021-04-24 07:13] MED LIST changes: +ACET-2605 PO; +AMOX-430 PO
--- NOTE | 2021-04-24 07:30 | NUR ---
To ER bed 14, c/o feeling depressed and suicidal. "to run into traffic" wants voluntary psych admission. aaox3, breathing even and non labored, placed into 1: supervision
[2021-04-24 08:06] LABS: BILIRUBIN,URINE NEGATIVE (NEGATIVE); COLOR,URINE YELLOW (YELLOW); LEUKOCYTE ESTERASE ,URINE NEGATIVE (NEGATIVE); NITRITE, URINE NEGATIVE (NEGATIVE); PH,URINE 6.5 (5.0-8.0); PROTEIN,URINE NEGATIVE (NEGATIVE); UGLUCOSE NEGATIVE (NEGATIVE)
[2021-04-24 08:22] LABS: BASOPHILS % (AUTO) 0.4 % (0.0-2.0); EOSINOPHILS % (AUTO) 0.6 % (0.0-6.0); HEMATOCRIT 40 % (39-51); LYMPHOCYTES % (AUTO) 23.7 % (20.0-44.0); MEAN CORPUSCULAR HGB CONC 33 g/dl (31.0-36.0); MEAN CORPUSCULAR VOLUME 91 fL (80-96); MONOCYTES # (AUTO) 0.8 K/uL (0.1-1.30); MONOCYTES % (AUTO) 9.6 % (2.0-12.0); NEUTROPHILS # (AUTO) 5.6 K/uL (1.8-8.9); NEUTROPHILS % (AUTO) 65.7 % (43.0-81.0); PLATELET COUNT (AUTO) 383 K/uL (150-450); RED BLOOD CELL COUNT(AUTO) 4.35 MIL/uL (4.5-6.0); WHITE BLOOD COUNT (AUTO) 8.5 K/uL (4.3-11.0)
[2021-04-24 08:45] LABS: RBC,URINE NONE SEEN /HPF (0-2)
[2021-04-24 08:46] LABS: BACTERIA,URINE Rare /HPF (None Seen); SQUAMOUS EPITHELIAL CELL,UR Rare /HPF (None Seen); URINE AMORPHOUS URATE Few /HPF (None Seen); WBC,URINE 0-2 /HPF (0-3)
[2021-04-24 08:48] LABS: ALANINE AMINOTRANSFERASE 26 U/L (12-78); ALBUMIN 3.2 g/dL (3.4-5.0); ALKALINE PHOSPHATASE 91 U/L (46-116); ASPARTATE AMINOTRANSFERASE 26 U/L (15-37); BILIRUBIN,DIRECT 0.1 mg/dL (0.0-0.2); BILIRUBIN,TOTAL 0.6 mg/dL (0.2-1.0); CALCIUM, SERUM 8.4 mg/dL (8.5-10.1); CARBON DIOXIDE 28 mmol/L (21-32); CHLORIDE 104 mmol/L (98-107); CREATININE 0.8 mg/dL (0.6-1.3); GLUCOSE 93 mg/dL (74-106); POTASSIUM 4.7 mmol/L (3.5-5.1); SODIUM SERUM 139 mmol/L (136-145); UREA NITROGEN, BLOOD 11 mg/dL (7-18)
[2021-04-24 08:59] LABS: ACETAMINOPHEN < 10 ug/ml (10-30)
[2021-04-24 09:00] LABS: ALCOHOL, BLOOD < 3 mg/dL (0-0)
--- NOTE | 2021-04-24 10:29 | NUR ---
patient resting, eating breakfast at this time. No distress noted.
--- NOTE | 2021-04-24 14:59 | NUR ---
PER NURSING AUTO BODY REPAIR TECHNICIAN TOD, PATIENT IS ACCEPTED AT [facility]. PATIENT TO BE TRANSFERRED AFTER 3:30PM.
--- NOTE | 2021-04-24 15:00 | NUR ---
REPORT GIVEN TO TOD HARPER.
[2021-04-24] MEDS ORDERED: ACETAMINOPHEN 325 MG TABLET ONE (15:55)
[2021-04-24] MEDS ORDERED: ACETAMINOPHEN ES 500 MG TABLET PO ONE (16:00)
--- NOTE | 2021-04-24 16:03 | NUR ---
[facility] ETA 1730 FOR TRANSPORT TO [facility].
[2021-04-24 18:50] VITALS: BP 140/87
--- NOTE | 2021-04-24 18:52 | NUR ---
TRANSPORTED TO [facility] IN STABLE CONDITION.
== END 2021-04-24 18:54 ==
LOC: ER 07:16
DX: R45.851 Suicidal ideations (principal); F19.10 Other psychoactive substance abuse, uncomplicated; Z20.822 Contact with and (suspected) exposure to COVID-19; Z82.49 Family history of ischemic heart disease and other diseases of the circulatory system; R00.1 Bradycardia, unspecified; Z59.00 Homelessness unspecified; F17.200 Nicotine dependence, unspecified, uncomplicated; F31.9 Bipolar disorder, unspecified; S01.81XD Laceration without foreign body of other part of head, subsequent encounter; Y00.XXXD Assault by blunt object, subsequent encounter
CPT/HCPCS: 36415; 80048; 80076; 80143; 80307; 80320; 81001; 84484; 85025; 87426; 93005; 99285; C9803; G0480

== ENCOUNTER 2021-05-05 11:16 | Emergency (ER) | payer OTHER ==
[~2021-05-05] VITALS: Ht 175.3 cm; Wt 65.8 kg
[2021-05-05 11:25] VITALS: BP 136/75
--- NOTE | 2021-05-05 11:31 | NUR ---
THE PATIENT BIBS FOR FEELING SUICIDAL BY RUNNING IN MIDDLE OF STREET,REQUESTING VOLUNTARY ADMISSION TO PSYCH. DENIES PAIN. IN ROOM AIR AND DENIES SOB. RESPIRATION REGULAR AND UNLABORED. WILL CONTINUE TO MONITOR THE PATIENT.
[2021-05-05 12:36] LABS: RED BLOOD CELL COUNT(AUTO) 4.73 MIL/uL (4.5-6.0); WHITE BLOOD COUNT (AUTO) 6.9 K/uL (4.3-11.0)
[2021-05-05 12:37] LABS: BASOPHILS # (AUTO) 0.1 K/uL (0.0-0.2); BASOPHILS % (AUTO) 0.8 % (0.0-2.0); EOSINOPHILS % (AUTO) 1.7 % (0.0-6.0); HEMATOCRIT 43 % (39-51); HEMOGLOBIN 14.2 g/dL (13.5-17.5); LYMPHOCYTES # (AUTO) 2.1 K/uL (0.8-4.8); LYMPHOCYTES % (AUTO) 29.8 % (20.0-44.0); MEAN CORPUSCULAR HGB CONC 33 g/dl (31.0-36.0); MEAN CORPUSCULAR VOLUME 91 fL (80-96); MONOCYTES # (AUTO) 0.8 K/uL (0.1-1.30); MONOCYTES % (AUTO) 11.2 % (2.0-12.0); NEUTROPHILS # (AUTO) 3.9 K/uL (1.8-8.9); NEUTROPHILS % (AUTO) 56.5 % (43.0-81.0); PLATELET COUNT (AUTO) 445 K/uL (150-450)
[2021-05-05 12:45] LABS: CALCIUM, SERUM 8.9 mg/dL (8.5-10.1); CARBON DIOXIDE 27 mmol/L (21-32); CHLORIDE 105 mmol/L (98-107); CREATININE 0.8 mg/dL (0.6-1.3); GLUCOSE 120 mg/dL (74-106); POTASSIUM 3.9 mmol/L (3.5-5.1); SODIUM SERUM 142 mmol/L (136-145); UREA NITROGEN, BLOOD 20 mg/dL (7-18)
[2021-05-05 12:48] LABS: BILIRUBIN,URINE NEGATIVE (NEGATIVE); COLOR,URINE YELLOW (YELLOW); LEUKOCYTE ESTERASE ,URINE NEGATIVE (NEGATIVE); NITRITE, URINE NEGATIVE (NEGATIVE); PH,URINE 6.5 (5.0-8.0); PROTEIN,URINE NEGATIVE (NEGATIVE); UGLUCOSE NEGATIVE (NEGATIVE); UROBILINOGEN,URINE 0.2 EU/dL (0.2)
[2021-05-05 13:08] LABS: ALANINE AMINOTRANSFERASE 35 U/L (12-78); ALBUMIN 3.8 g/dL (3.4-5.0); ALCOHOL, BLOOD < 3 mg/dL (0-0); ALKALINE PHOSPHATASE 93 U/L (46-116); ASPARTATE AMINOTRANSFERASE 20 U/L (15-37); BILIRUBIN,DIRECT 0.1 mg/dL (0.0-0.2); BILIRUBIN,TOTAL 0.5 mg/dL (0.2-1.0); TOTAL PROTEIN, SERUM 7.5 g/dL (6.4-8.2)
[2021-05-05 13:09] LABS: ACETAMINOPHEN < 10 ug/ml (10-30)
--- NOTE | 2021-05-05 13:13 | NUR ---
PT IS MEDICALLY CLEARED
--- NOTE | 2021-05-05 15:57 | NUR ---
FAXED CLINICALS TO [facility] INTAKE.
--- NOTE | 2021-05-05 18:26 | NUR ---
CALLED [facility] FOR UPDATE AGILE SCRUM MASTER ACCEPTED TO [facility] UNDER DR. SPENCER & SADIA CALL [phone] X [phone] FOR REPORT
--- NOTE | 2021-05-05 18:58 | NUR ---
[facility] CALLED ETA 30 MINS PER ROBERTO.
--- NOTE | 2021-05-05 19:30 | NUR ---
REPORT GIVEN TO YURIY AT [facility]
== END 2021-05-05 21:36 ==
LOC: ER 11:19
DX: R45.851 Suicidal ideations (principal); S01.81XD Laceration without foreign body of other part of head, subsequent encounter; X58.XXXD Exposure to other specified factors, subsequent encounter; F31.9 Bipolar disorder, unspecified; Z59.00 Homelessness unspecified; R03.0 Elevated blood-pressure reading, without diagnosis of hypertension; F17.290 Nicotine dependence, other tobacco product, uncomplicated; Z20.822 Contact with and (suspected) exposure to COVID-19
CPT/HCPCS: 36415; 80048; 80076; 80143; 80307; 80320; 81003; 85025; 87426; 99285; 99406; C9803; G0480

== ENCOUNTER 2021-06-04 18:16 | Emergency (ER) | payer OTHER ==
[~2021-06-04] VITALS: Ht 162.6 cm; Wt 65.8 kg
[2021-06-04 19:44] LABS: BILIRUBIN,URINE SMALL (NEGATIVE); COLOR,URINE YELLOW (YELLOW); LEUKOCYTE ESTERASE ,URINE NEGATIVE (NEGATIVE); NITRITE, URINE NEGATIVE (NEGATIVE); PH,URINE 5.5 (5.0-8.0); PROTEIN,URINE NEGATIVE (NEGATIVE); UGLUCOSE NEGATIVE (NEGATIVE); UROBILINOGEN,URINE 0.2 EU/dL (0.2)
[2021-06-04 19:47] LABS: BASOPHILS # (AUTO) 0.1 K/uL (0.0-0.2); BASOPHILS % (AUTO) 0.7 % (0.0-2.0); HEMATOCRIT 41 % (39-51); HEMOGLOBIN 13.5 g/dL (13.5-17.5); LYMPHOCYTES # (AUTO) 2.7 K/uL (0.8-4.8); LYMPHOCYTES % (AUTO) 29.9 % (20.0-44.0); MEAN CORPUSCULAR HGB CONC 33 g/dl (31.0-36.0); MEAN CORPUSCULAR VOLUME 92 fL (80-96); MONOCYTES # (AUTO) 0.9 K/uL (0.1-1.30); NEUTROPHILS # (AUTO) 5.2 K/uL (1.8-8.9); NEUTROPHILS % (AUTO) 58.4 % (43.0-81.0); PLATELET COUNT (AUTO) 364 K/uL (150-450); RED BLOOD CELL COUNT(AUTO) 4.48 MIL/uL (4.5-6.0); WHITE BLOOD COUNT (AUTO) 8.9 K/uL (4.3-11.0)
[2021-06-04 19:50] LABS: CALCIUM, SERUM 8.5 mg/dL (8.5-10.1); CARBON DIOXIDE 30 mmol/L (21-32); CHLORIDE 102 mmol/L (98-107); CREATININE 1.1 mg/dL (0.6-1.3); GLUCOSE 83 mg/dL (74-106); POTASSIUM 3.8 mmol/L (3.5-5.1); SODIUM SERUM 140 mmol/L (136-145); UREA NITROGEN, BLOOD 21 mg/dL (7-18)
[2021-06-04 20:04] LABS: ALANINE AMINOTRANSFERASE 25 U/L (12-78); ALBUMIN 3.8 g/dL (3.4-5.0); ALKALINE PHOSPHATASE 93 U/L (46-116); ASPARTATE AMINOTRANSFERASE 21 U/L (15-37); BILIRUBIN,DIRECT 0.1 mg/dL (0.0-0.2); BILIRUBIN,TOTAL 0.2 mg/dL (0.2-1.0)
[2021-06-04 20:06] LABS: ACETAMINOPHEN 0 ug/ml (10-30); ALCOHOL, BLOOD < 3 mg/dL (0-0)
[2021-06-04 20:18] LABS: BACTERIA,URINE RARE /HPF (None Seen); RBC,URINE 0-2 /HPF (0-2); SQUAMOUS EPITHELIAL CELL,UR 0-2 /HPF (None Seen); WBC,URINE 0-2 /HPF (0-3)
[2021-06-04 20:19] LABS: MUCUS,URINE Few /LPF (None Seen); URIC ACID CRYSTALS,URINE Few /HPF (None Seen)
[2021-06-05 07:01] VITALS: BP 133/90
== END 2021-06-05 07:01 ==
LOC: ER 18:21
DX: R45.851 Suicidal ideations (principal); R45.850 Homicidal ideations; F31.9 Bipolar disorder, unspecified; F17.200 Nicotine dependence, unspecified, uncomplicated; F19.10 Other psychoactive substance abuse, uncomplicated; Z20.822 Contact with and (suspected) exposure to COVID-19
CPT/HCPCS: 36415; 80048; 80076; 80143; 80307; 80320; 81001; 85025; 87426; 99285; C9803; G0480

== ENCOUNTER 2021-07-09 14:46 | Emergency (ER) | payer OTHER ==
[~2021-07-09] VITALS: Ht 167.6 cm; Wt 68.0 kg
--- NOTE | 2021-07-09 14:58 | NUR ---
PT VIJAY C/O "[facility]- Voluntary". PT A/OX3. TOLERATING R/A WELL WITH NO SOB.
[2021-07-09 16:32] LABS: BILIRUBIN,URINE SMALL (NEGATIVE); COLOR,URINE YELLOW (YELLOW); LEUKOCYTE ESTERASE ,URINE NEGATIVE (NEGATIVE); NITRITE, URINE NEGATIVE (NEGATIVE); PROTEIN,URINE NEGATIVE (NEGATIVE); UGLUCOSE NEGATIVE (NEGATIVE); UROBILINOGEN,URINE 0.2 EU/dL (0.2)
[2021-07-09 16:49] LABS: BACTERIA,URINE None seen /HPF (None Seen); MUCUS,URINE Few /LPF (None Seen); SQUAMOUS EPITHELIAL CELL,UR 0-2 /HPF (None Seen); WBC,URINE 0-2 /HPF (0-3)
--- NOTE | 2021-07-09 16:55 | NUR ---
COVID SWAB DONE AND SENT TO LAB
[2021-07-09 16:59] LABS: BASOPHILS # (AUTO) 0.1 K/uL (0.0-0.2); BASOPHILS % (AUTO) 0.5 % (0.0-2.0); EOSINOPHILS % (AUTO) 1.1 % (0.0-6.0); HEMATOCRIT 42 % (39-51); HEMOGLOBIN 14.1 g/dL (13.5-17.5); LYMPHOCYTES # (AUTO) 1.8 K/uL (0.8-4.8); LYMPHOCYTES % (AUTO) 16.8 % (20.0-44.0); MEAN CORPUSCULAR HGB CONC 34 g/dl (31.0-36.0); MEAN CORPUSCULAR VOLUME 88 fL (80-96); MONOCYTES # (AUTO) 1.1 K/uL (0.1-1.30); MONOCYTES % (AUTO) 10.3 % (2.0-12.0); NEUTROPHILS # (AUTO) 7.7 K/uL (1.8-8.9); NEUTROPHILS % (AUTO) 71.3 % (43.0-81.0); PLATELET COUNT (AUTO) 391 K/uL (150-450); RED BLOOD CELL COUNT(AUTO) 4.75 MIL/uL (4.5-6.0); WHITE BLOOD COUNT (AUTO) 10.9 K/uL (4.3-11.0)
[2021-07-09 17:17] LABS: CALCIUM, SERUM 8.8 mg/dL (8.5-10.1); CARBON DIOXIDE 30 mmol/L (21-32); CHLORIDE 102 mmol/L (98-107); CREATININE 0.9 mg/dL (0.6-1.3); GLUCOSE 108 mg/dL (74-106); POTASSIUM 3.6 mmol/L (3.5-5.1); SODIUM SERUM 141 mmol/L (136-145); UREA NITROGEN, BLOOD 20 mg/dL (7-18)
--- NOTE | 2021-07-09 17:54 | NUR ---
DINNER IS SERVED. THE PATIENT TOLERATED PROVIDED MEAL WELL.
[2021-07-09 18:54] LABS: ALANINE AMINOTRANSFERASE 60 U/L (12-78); ALBUMIN 3.4 g/dL (3.4-5.0); ALKALINE PHOSPHATASE 100 U/L (46-116); ASPARTATE AMINOTRANSFERASE 39 U/L (15-37); BILIRUBIN,TOTAL 0.2 mg/dL (0.2-1.0)
[2021-07-09 19:18] LABS: ACETAMINOPHEN < 2 ug/ml (10-30); ALCOHOL, BLOOD < 3 mg/dL (0-0)
--- NOTE | 2021-07-10 01:15 | NUR ---
Patient is resting comfortably in bed with eyes closed. Easily aroused. VSS
--- NOTE | 2021-07-10 04:49 | NUR ---
PT ACCEPTED AT [facility] UNDER THE CARE OF DR. SPENCER. CALL [phone] FOR REPORT
--- NOTE | 2021-07-10 04:50 | NUR ---
PLEASE SEND THE PATIENT AFTER 0700 PER LEATHER SEASONER.
--- NOTE | 2021-07-10 04:50 | NUR ---
REPORT GIVEN TO MEREDITH JAMESON FOR RAUL AT THE [facility]
--- NOTE | 2021-07-10 05:54 | NUR ---
STORE ASSOCIATE AT 0700 BY [facility] TRANSPORT
[2021-07-10 07:15] VITALS: BP 112/58
--- NOTE | 2021-07-10 07:33 | NUR ---
REPORT GIVEN TO ROUTE AIDE GOING TO [facility].
== END 2021-07-10 07:34 ==
LOC: ER 14:48
DX: R45.851 Suicidal ideations (principal); F31.9 Bipolar disorder, unspecified; F19.10 Other psychoactive substance abuse, uncomplicated; F17.200 Nicotine dependence, unspecified, uncomplicated; Z20.822 Contact with and (suspected) exposure to COVID-19; Z59.01 Sheltered homelessness
CPT/HCPCS: 36415; 80048; 80076; 80143; 80307; 80320; 81001; 85025; 87426; 99285; C9803; G0480

== ENCOUNTER 2021-08-24 16:11 | Emergency (ER) | payer OTHER ==
[~2021-08-24] VITALS: Ht 175.3 cm; Wt 68.0 kg
[2021-08-24 18:06] LABS: BASOPHILS # (AUTO) 0.1 K/uL (0.0-0.2); BASOPHILS % (AUTO) 0.9 % (0.0-2.0); EOSINOPHILS % (AUTO) 1.6 % (0.0-6.0); HEMATOCRIT 39 % (39-51); HEMOGLOBIN 12.8 g/dL (13.5-17.5); LYMPHOCYTES # (AUTO) 3.1 K/uL (0.8-4.8); LYMPHOCYTES % (AUTO) 33.4 % (20.0-44.0); MEAN CORPUSCULAR HGB CONC 33 g/dl (31.0-36.0); MEAN CORPUSCULAR VOLUME 87 fL (80-96); MONOCYTES # (AUTO) 0.9 K/uL (0.1-1.30); MONOCYTES % (AUTO) 10.2 % (2.0-12.0); NEUTROPHILS % (AUTO) 53.9 % (43.0-81.0); PLATELET COUNT (AUTO) 433 K/uL (150-450); RED BLOOD CELL COUNT(AUTO) 4.46 MIL/uL (4.5-6.0); WHITE BLOOD COUNT (AUTO) 9.3 K/uL (4.3-11.0)
[2021-08-24 18:15] LABS: BILIRUBIN,URINE NEGATIVE (NEGATIVE); COLOR,URINE YELLOW (YELLOW); LEUKOCYTE ESTERASE ,URINE NEGATIVE (NEGATIVE); NITRITE, URINE NEGATIVE (NEGATIVE); PH,URINE 6.5 (5.0-8.0); PROTEIN,URINE NEGATIVE (NEGATIVE); UGLUCOSE NEGATIVE (NEGATIVE)
[2021-08-24 18:24] LABS: CALCIUM, SERUM 8.6 mg/dL (8.5-10.1); CARBON DIOXIDE 30 mmol/L (21-32); CHLORIDE 105 mmol/L (98-107); CREATININE 0.8 mg/dL (0.6-1.3); GLUCOSE 112 mg/dL (74-106); POTASSIUM 3.4 mmol/L (3.5-5.1); SODIUM SERUM 143 mmol/L (136-145); UREA NITROGEN, BLOOD 10 mg/dL (7-18)
[2021-08-24 18:31] LABS: RBC,URINE 0-2 /HPF (0-2)
[2021-08-24 18:32] LABS: ALANINE AMINOTRANSFERASE 30 U/L (12-78); ALBUMIN 3.1 g/dL (3.4-5.0); ALCOHOL, BLOOD < 3 mg/dL (0-0); ALKALINE PHOSPHATASE 110 U/L (46-116); ASPARTATE AMINOTRANSFERASE 15 U/L (15-37); BILIRUBIN,TOTAL 0.1 mg/dL (0.2-1.0); TOTAL PROTEIN, SERUM 6.4 g/dL (6.4-8.2)
[2021-08-24 18:32] LABS: BACTERIA,URINE None seen /HPF (None Seen); CALCIUM OXALATE CRYSTALS,UR Few /HPF (None Seen); SQUAMOUS EPITHELIAL CELL,UR 0-2 /HPF (None Seen); WBC,URINE 0-2 /HPF (0-3)
[2021-08-24 18:37] LABS: ACETAMINOPHEN < 2 ug/ml (10-30)
[2021-08-25 20:15] VITALS: BP 148/79
== END 2021-08-25 20:29 ==
LOC: ER 16:25
DX: R45.851 Suicidal ideations (principal); F19.10 Other psychoactive substance abuse, uncomplicated; Z20.822 Contact with and (suspected) exposure to COVID-19; F31.9 Bipolar disorder, unspecified; F17.200 Nicotine dependence, unspecified, uncomplicated; E87.6 Hypokalemia
CPT/HCPCS: 36415; 80048; 80076; 80143; 80307; 80320; 81001; 85025; 87426; 99285; C9803; G0480

== ENCOUNTER 2021-09-07 09:36 | Emergency (ER) | payer OTHER ==
[~2021-09-07] VITALS: Ht 175.3 cm; Wt 68.0 kg
[2021-09-07 09:43] VITALS: BP 132/92
--- NOTE | 2021-09-07 09:43 | NUR ---
FEELING SUICIDAL, "RUN IN FRONT OF A CAR" WANTS VOL PSYCH ADMIT TO [facility].
--- NOTE | 2021-09-07 09:59 | NUR ---
COVID SWAB DONE, LAB CALLED FOR GOLF PLAYER ASSISTANT.
--- NOTE | 2021-09-07 10:01 | NUR ---
REGULATORY COMPLIANCE OFFICER AT BEDSIDE FOR BLOOD DRAW.
[2021-09-07 10:36] LABS: BASOPHILS % (AUTO) 0.6 % (0.0-2.0); EOSINOPHILS % (AUTO) 1.9 % (0.0-6.0); HEMATOCRIT 39 % (39-51); HEMOGLOBIN 12.9 g/dL (13.5-17.5); LYMPHOCYTES % (AUTO) 31.7 % (20.0-44.0); MEAN CORPUSCULAR HGB CONC 33 g/dl (31.0-36.0); MEAN CORPUSCULAR VOLUME 87 fL (80-96); MONOCYTES # (AUTO) 0.6 K/uL (0.1-1.30); MONOCYTES % (AUTO) 8.6 % (2.0-12.0); NEUTROPHILS # (AUTO) 3.7 K/uL (1.8-8.9); NEUTROPHILS % (AUTO) 57.2 % (43.0-81.0); PLATELET COUNT (AUTO) 396 K/uL (150-450); RED BLOOD CELL COUNT(AUTO) 4.49 MIL/uL (4.5-6.0); WHITE BLOOD COUNT (AUTO) 6.4 K/uL (4.3-11.0)
[2021-09-07 10:50] LABS: CALCIUM, SERUM 8.2 mg/dL (8.5-10.1); CARBON DIOXIDE 27 mmol/L (21-32); CHLORIDE 104 mmol/L (98-107); CREATININE 0.9 mg/dL (0.6-1.3); GLUCOSE 216 mg/dL (74-106); POTASSIUM 3.5 mmol/L (3.5-5.1); SODIUM SERUM 138 mmol/L (136-145); UREA NITROGEN, BLOOD 11 mg/dL (7-18)
[2021-09-07 11:01] LABS: ALANINE AMINOTRANSFERASE 33 U/L (12-78); ALBUMIN 3.3 g/dL (3.4-5.0); ALCOHOL, BLOOD < 3 mg/dL (0-0); ALKALINE PHOSPHATASE 92 U/L (46-116); ASPARTATE AMINOTRANSFERASE 18 U/L (15-37); BILIRUBIN,DIRECT 0.1 mg/dL (0.0-0.2); BILIRUBIN,TOTAL 0.2 mg/dL (0.2-1.0); TOTAL PROTEIN, SERUM 6.5 g/dL (6.4-8.2)
[2021-09-07 11:04] LABS: ACETAMINOPHEN 0 ug/ml (10-30)
--- NOTE | 2021-09-07 11:28 | NUR ---
SS Consult: SS consult for suicidal. Pt. Is a 35-year-old male. Pt. demonstrates adequate insight to the reason for hospitalization. Per pt., he was brought to hospital by self-due to having suicidal ideation. Pt. was oriented x3, alert, and cooperative. During interview, pt. was capable of following directions, made appropriate eye-contact, and appeared unkempt. Pt.'s speech was at a normal rate. Pt.'s mood was elevated. [facility]AL[facility] explored pt.'s hx of mental health and substance abuse. Pt. reported no hx of mental health or homicidal ideation. Per pt., he uses methamphetamine and drinks alcohol. Last use was couple days ago. Pt. refuses to receive help. Pt. denies visual hallucinations, paranoia, or delusions. Pt. stated he experience auditory hallucinations but does not know what the voices are saying. CATALINA explored pt.'s living situation. Per pt., he is homeless. Plan: [facility] provided pt. with resources and pt. accepted. Pt. expressed that he wants to go to [facility]. Will fax clinicals once pt. is medically cleared. Resources Provided: Homeless and Addiction Resources.
--- NOTE | 2021-09-07 11:52 | NUR ---
FAXED CLINICALS TO [facility]
--- NOTE | 2021-09-07 12:19 | NUR ---
URINE COLLECTED AND SENT TO LAB
[2021-09-07 13:06] LABS: BILIRUBIN,URINE NEGATIVE (NEGATIVE); COLOR,URINE YELLOW (YELLOW); LEUKOCYTE ESTERASE ,URINE NEGATIVE (NEGATIVE); NITRITE, URINE NEGATIVE (NEGATIVE); PH,URINE 8.5 (5.0-8.0); PROTEIN,URINE NEGATIVE (NEGATIVE); UGLUCOSE NEGATIVE (NEGATIVE)
[2021-09-07 13:25] LABS: BACTERIA,URINE None seen /HPF (None Seen); RBC,URINE 0-2 /HPF (0-2); SQUAMOUS EPITHELIAL CELL,UR Rare /HPF (None Seen); URINE AMORPHOUS PHOSPHATES Moderate /HPF (None Seen); WBC,URINE 0-2 /HPF (0-3)
--- NOTE | 2021-09-07 16:02 | NUR ---
ACCEPTED AT [facility] UNDER DR MERRILL. # FOR REPORT [phone] AMBULANCE ETA 1700
--- NOTE | 2021-09-07 16:38 | NUR ---
REPORT TO YURIY AT [facility]. AWAITING TRANSPORT.
== END 2021-09-07 18:12 ==
LOC: ER 09:40
DX: R45.851 Suicidal ideations (principal); F15.10 Other stimulant abuse, uncomplicated; Z20.822 Contact with and (suspected) exposure to COVID-19; F12.10 Cannabis abuse, uncomplicated; Z59.02 Unsheltered homelessness; F31.9 Bipolar disorder, unspecified; R73.9 Hyperglycemia, unspecified
CPT/HCPCS: 36415; 80048; 80076; 80143; 80307; 80320; 81001; 85025; 87426; 99285; C9803; G0480

== ENCOUNTER 2021-09-26 18:01 | Emergency (ER) | payer OTHER ==
[~2021-09-26] VITALS: Ht 175.3 cm; Wt 68.9 kg
--- NOTE | 2021-09-26 18:01 | NUR ---
PT BIB SELF C/O HEARING VOICES, SI "RUN THRU TRAFFIC" PT IS AAOX4, NOT IN RESPIRATORY DISTRESS, V/S STABLE, KEPT RESTED AND COMFORTABLE. WILL CONTINUE TO MONITOR.
--- NOTE | 2021-09-26 18:15 | NUR ---
URINAL GIVEN UNABLE TO PROVIDE URINE SPECIMEN THIS TIME.
--- NOTE | 2021-09-26 18:17 | NUR ---
COVID SPECIMEN OBTAINED AND SENT TO LAB.
--- NOTE | 2021-09-26 18:23 | NUR ---
URINE COLLECTED AND SENT TO LAB
[2021-09-26 18:26] LABS: BASOPHILS # (AUTO) 0.1 K/uL (0.0-0.2); BASOPHILS % (AUTO) 0.8 % (0.0-2.0); EOSINOPHILS % (AUTO) 2.4 % (0.0-6.0); HEMATOCRIT 44 % (39-51); HEMOGLOBIN 14.3 g/dL (13.5-17.5); LYMPHOCYTES # (AUTO) 2.4 K/uL (0.8-4.8); LYMPHOCYTES % (AUTO) 33.2 % (20.0-44.0); MEAN CORPUSCULAR HGB CONC 33 g/dl (31.0-36.0); MEAN CORPUSCULAR VOLUME 89 fL (80-96); MONOCYTES % (AUTO) 13.7 % (2.0-12.0); NEUTROPHILS # (AUTO) 3.7 K/uL (1.8-8.9); NEUTROPHILS % (AUTO) 49.9 % (43.0-81.0); PLATELET COUNT (AUTO) 421 K/uL (150-450); RED BLOOD CELL COUNT(AUTO) 4.91 MIL/uL (4.5-6.0); WHITE BLOOD COUNT (AUTO) 7.3 K/uL (4.3-11.0)
[2021-09-26 18:42] LABS: CALCIUM, SERUM 8.6 mg/dL (8.5-10.1); CARBON DIOXIDE 29 mmol/L (21-32); CHLORIDE 104 mmol/L (98-107); CREATININE 1.2 mg/dL (0.6-1.3); GLUCOSE 159 mg/dL (74-106); POTASSIUM 3.8 mmol/L (3.5-5.1); SODIUM SERUM 139 mmol/L (136-145); UREA NITROGEN, BLOOD 10 mg/dL (7-18)
[2021-09-26 18:47] LABS: ALANINE AMINOTRANSFERASE 36 U/L (12-78); ALBUMIN 3.7 g/dL (3.4-5.0); ALCOHOL, BLOOD < 3 mg/dL (0-0); ALKALINE PHOSPHATASE 92 U/L (46-116); ASPARTATE AMINOTRANSFERASE 22 U/L (15-37); BILIRUBIN,DIRECT 0.1 mg/dL (0.0-0.2); BILIRUBIN,TOTAL 0.5 mg/dL (0.2-1.0)
[2021-09-26 18:48] LABS: ACETAMINOPHEN < 1 ug/ml (10-30)
[2021-09-26 18:57] LABS: BILIRUBIN,URINE NEGATIVE (NEGATIVE); COLOR,URINE YELLOW (YELLOW); LEUKOCYTE ESTERASE ,URINE NEGATIVE (NEGATIVE); NITRITE, URINE NEGATIVE (NEGATIVE); PH,URINE 5.5 (5.0-8.0); PROTEIN,URINE NEGATIVE (NEGATIVE); UGLUCOSE NEGATIVE (NEGATIVE); UROBILINOGEN,URINE 0.2 EU/dL (0.2)
[2021-09-26 19:09] LABS: BACTERIA,URINE None seen /HPF (None Seen); MUCUS,URINE Many /LPF (None Seen); RBC,URINE 0-2 /HPF (0-2); WBC,URINE 0-2 /HPF (0-3)
--- NOTE | 2021-09-26 20:04 | NUR ---
FACESHEET AND CLINICALS FAXED TO [facility].
--- NOTE | 2021-09-27 08:00 | NUR ---
BREAKFAST TRAY PROVIDED
--- NOTE | 2021-09-27 12:30 | NUR ---
RECIEVED A CALL FROM [facility] AND AT THE MOMENT HAVE NO BEDS FOR PATIENT.
--- NOTE | 2021-09-27 12:41 | NUR ---
SPOKE WITH JOSSUE FROM [facility]. PT ACCEPTED UNDER DR. SPENCER FOR [facility]. NUMBER FOR REPORT IS [phone] EXT [phone].
--- NOTE | 2021-09-27 13:42 | NUR ---
Spoke to [facility] -NO capacity to admit right now. Request to call back next shift after 1929
--- NOTE | 2021-09-27 19:06 | NUR ---
NO acute changes. Still waiting for bed in [facility] facility- able to Sleep intermittently. Compliant
--- NOTE | 2021-09-27 19:08 | NUR ---
CALLED TO FOLLOW UP WITH [facility] REGARDING ADMISSION. PT SHOULD HAVE BEEN THERE AROUND 1830 BUT NO ONE HAS COME TO RESIDENTIAL FINISH CARPENTER PATIENT. EXPLAINED SITUATION TO [facility] AND WILL FOLLOW UP WITH GAS SUBSTATION OPERATOR. WILL CALL US BACK.
--- NOTE | 2021-09-28 03:13 | NUR ---
[facility] CALLED FOR TRANSPORT. ETA 30-45 MINUTES.
[2021-09-28 03:24] VITALS: BP 106/52
--- NOTE | 2021-09-28 03:36 | NUR ---
REPORT GIVEN TO IJ AT [facility]
--- NOTE | 2021-09-28 04:00 | NUR ---
PT PICKED UP BY [facility] FOR TRANSPORT TO [facility]. PT TRANSFERRED IN STABLE CONDITION VIA [facility].
== END 2021-09-28 04:27 ==
LOC: ER 18:02
DX: R45.851 Suicidal ideations (principal); F15.10 Other stimulant abuse, uncomplicated; F31.9 Bipolar disorder, unspecified; Z20.822 Contact with and (suspected) exposure to COVID-19; F17.200 Nicotine dependence, unspecified, uncomplicated; F19.10 Other psychoactive substance abuse, uncomplicated
CPT/HCPCS: 36415; 80048; 80076; 80143; 80307; 80320; 81001; 85025; 87426; 99285; C9803; G0480

== ENCOUNTER 2021-10-12 17:47 | Emergency (ER) | payer OTHER ==
[~2021-10-12] VITALS: Ht 175.3 cm; Wt 88.5 kg
--- NOTE | 2021-10-12 17:47 | NUR ---
PT BIB SELF C/O SI "I WANT TO JUMP OF A BRIDGE" REQUESTING PSYCH ADMISSION. PT IS AAOX4, NOT IN RESPIRTORY DISTRESS, V/S STABLE, KEPT RESTED AND COMFORTABLE. WILL CONTINUE TO MONITOR. BELONGINGS REMOVED AT BEDSIDE AND PLACED IN THE PATIENT LOCKER.
[2021-10-12 17:56] VITALS: BP 138/89
--- NOTE | 2021-10-12 18:05 | NUR ---
URINE SPECIMEN COLLECTED AND SENT TO LAB.
--- NOTE | 2021-10-12 18:22 | NUR ---
COVID SPECIMEN COLLECTED AND SENT TO LAB.
[2021-10-12 18:25] LABS: BASOPHILS # (AUTO) 0.1 K/uL (0.0-0.2); BASOPHILS % (AUTO) 0.8 % (0.0-2.0); EOSINOPHILS % (AUTO) 1.9 % (0.0-6.0); HEMATOCRIT 41 % (39-51); HEMOGLOBIN 13.5 g/dL (13.5-17.5); LYMPHOCYTES # (AUTO) 2.7 K/uL (0.8-4.8); LYMPHOCYTES % (AUTO) 27.1 % (20.0-44.0); MEAN CORPUSCULAR HGB CONC 33 g/dl (31.0-36.0); MEAN CORPUSCULAR VOLUME 87 fL (80-96); MONOCYTES % (AUTO) 10.3 % (2.0-12.0); NEUTROPHILS % (AUTO) 59.9 % (43.0-81.0); PLATELET COUNT (AUTO) 372 K/uL (150-450); RED BLOOD CELL COUNT(AUTO) 4.71 MIL/uL (4.5-6.0)
[2021-10-12 18:34] LABS: BILIRUBIN,URINE NEGATIVE (NEGATIVE); COLOR,URINE YELLOW (YELLOW); LEUKOCYTE ESTERASE ,URINE NEGATIVE (NEGATIVE); NITRITE, URINE NEGATIVE (NEGATIVE); PROTEIN,URINE NEGATIVE (NEGATIVE); UGLUCOSE NEGATIVE (NEGATIVE); UROBILINOGEN,URINE 0.2 EU/dL (0.2)
[2021-10-12 19:10] LABS: ALANINE AMINOTRANSFERASE 22 U/L (12-78); ALBUMIN 3.4 g/dL (3.4-5.0); ALCOHOL, BLOOD < 3 mg/dL (0-0); ALKALINE PHOSPHATASE 109 U/L (46-116); ASPARTATE AMINOTRANSFERASE 13 U/L (15-37); BILIRUBIN,DIRECT 0.1 mg/dL (0.0-0.2); BILIRUBIN,TOTAL 0.2 mg/dL (0.2-1.0); CALCIUM, SERUM 8.9 mg/dL (8.5-10.1); CARBON DIOXIDE 27 mmol/L (21-32); CHLORIDE 104 mmol/L (98-107); GLUCOSE 103 mg/dL (74-106); POTASSIUM 3.7 mmol/L (3.5-5.1); SODIUM SERUM 139 mmol/L (136-145); TOTAL PROTEIN, SERUM 6.4 g/dL (6.4-8.2); UREA NITROGEN, BLOOD 15 mg/dL (7-18)
[2021-10-12 19:21] LABS: ACETAMINOPHEN < 2 ug/ml (10-30)
--- NOTE | 2021-10-13 08:48 | NUR ---
CATALINA faxed clinicals to [facility] [[address] [place] [id number] FAX:[phone]] for voluntary psychiatric treatment.
--- NOTE | 2021-10-13 10:06 | NUR ---
Pt accepted to [facility] Accepting MD Dr. Rios Will go to unit 2 Number for report [phone] Ex [phone] Eta for transport 1300
--- NOTE | 2021-10-13 12:57 | NUR ---
[facility] CAME AND PICKED UP PATIENT
== END 2021-10-13 12:59 ==
LOC: ER 17:49
DX: R45.851 Suicidal ideations (principal); Z20.822 Contact with and (suspected) exposure to COVID-19; F17.200 Nicotine dependence, unspecified, uncomplicated; F31.9 Bipolar disorder, unspecified; F19.90 Other psychoactive substance use, unspecified, uncomplicated
CPT/HCPCS: 36415; 80048; 80076; 80143; 80307; 80320; 81003; 85025; 87426; 99285; C9803; G0480

== ENCOUNTER 2021-11-01 18:15 | Emergency (ER) | payer OTHER ==
[~2021-11-01] VITALS: Ht 177.8 cm; Wt 68.0 kg
--- NOTE | 2021-11-01 18:15 | NUR ---
PT BIB SELF C/O SI "TO RUN INTO TRAFFIC" REQUESTING VOLUNTARY PSYCH ADMISSION TO [facility]. PT IS AAOX4, NOT IN RESPIRATORY DISTRESS, V/S STABLE, KEPT RESTED AND COMFORTABLE. WILL CONTINUE TO MONITOR.
--- NOTE | 2021-11-01 18:48 | NUR ---
COVID SWAB DONE AND SENT TO LAB
--- NOTE | 2021-11-01 18:53 | NUR ---
SECURITY AT BEDSIDE FOR WANDING.
[2021-11-01 19:33] LABS: CALCIUM, SERUM 9.2 mg/dL (8.5-10.1); CARBON DIOXIDE 27 mmol/L (21-32); CHLORIDE 104 mmol/L (98-107); GLUCOSE 112 mg/dL (74-106); POTASSIUM 3.9 mmol/L (3.5-5.1); SODIUM SERUM 142 mmol/L (136-145); UREA NITROGEN, BLOOD 8 mg/dL (7-18)
[2021-11-01 19:47] LABS: ALANINE AMINOTRANSFERASE 28 U/L (12-78); ALBUMIN 3.6 g/dL (3.4-5.0); ALCOHOL, BLOOD < 3 mg/dL (0-0); ALKALINE PHOSPHATASE 93 U/L (46-116); ASPARTATE AMINOTRANSFERASE 19 U/L (15-37); BILIRUBIN,DIRECT 0.1 mg/dL (0.0-0.2); BILIRUBIN,TOTAL 0.3 mg/dL (0.2-1.0); TOTAL PROTEIN, SERUM 6.8 g/dL (6.4-8.2)
[2021-11-01 19:49] LABS: ACETAMINOPHEN 0 ug/ml (10-30)
[2021-11-01 19:56] LABS: BASOPHILS # (AUTO) 0.1 K/uL (0.0-0.2); BASOPHILS % (AUTO) 0.8 % (0.0-2.0); EOSINOPHILS % (AUTO) 3.9 % (0.0-6.0); HEMATOCRIT 42 % (39-51); LYMPHOCYTES # (AUTO) 2.8 K/uL (0.8-4.8); LYMPHOCYTES % (AUTO) 41.6 % (20.0-44.0); MEAN CORPUSCULAR HGB CONC 33 g/dl (31.0-36.0); MEAN CORPUSCULAR VOLUME 88 fL (80-96); MONOCYTES # (AUTO) 0.8 K/uL (0.1-1.30); MONOCYTES % (AUTO) 11.9 % (2.0-12.0); NEUTROPHILS # (AUTO) 2.8 K/uL (1.8-8.9); NEUTROPHILS % (AUTO) 41.8 % (43.0-81.0); PLATELET COUNT (AUTO) 348 K/uL (150-450); RED BLOOD CELL COUNT(AUTO) 4.78 MIL/uL (4.5-6.0); WHITE BLOOD COUNT (AUTO) 6.7 K/uL (4.3-11.0)
[2021-11-01 22:18] LABS: BILIRUBIN,URINE NEGATIVE (NEGATIVE); COLOR,URINE YELLOW (YELLOW); LEUKOCYTE ESTERASE ,URINE NEGATIVE (NEGATIVE); NITRITE, URINE NEGATIVE (NEGATIVE); PROTEIN,URINE NEGATIVE (NEGATIVE); UGLUCOSE NEGATIVE (NEGATIVE); UROBILINOGEN,URINE 0.2 EU/dL (0.2)
--- NOTE | 2021-11-02 00:43 | NUR ---
FACESHEET AND CLINICALS FAXED TO [facility].
--- NOTE | 2021-11-02 08:40 | NUR ---
[facility] NO [facility]ED AVAILABILITY AT THIS TIME CHECK AFTER 1129 SPOKE WITH NOVEMBER.
[2021-11-02] MEDS ORDERED: FLUO20CA42 PO (10:04)
[2021-11-02] MEDS ORDERED: QUET100T PO (10:04)
[2021-11-02] MEDS ORDERED: DIVA500T54 PO (10:04)
--- NOTE | 2021-11-02 11:44 | NUR ---
PT ACCEPTED TO [facility] UNDER DR. FRANCO PLEASE CALL [phone] FOR REPORT. TRANSPORT WILL BE HER AT 1530 PER DIALLO.
--- NOTE | 2021-11-02 11:56 | NUR ---
LUNCH TRAY PROVIDED. TOLERATED WELL
[2021-11-02 14:55] VITALS: BP 122/86
--- NOTE | 2021-11-02 15:12 | NUR ---
PATIENT PICKED UP BY [facility] IN STABLE CONDITION. ALL BELONGINGS GIVEN BACK TO PATIENT. CLINICALS PROVIDED TO BE GIVEN TO [facility].
== END 2021-11-02 15:48 ==
LOC: ER 18:20
DX: R45.851 Suicidal ideations (principal); F15.10 Other stimulant abuse, uncomplicated; F31.9 Bipolar disorder, unspecified; Z20.822 Contact with and (suspected) exposure to COVID-19; Z59.00 Homelessness unspecified; F17.200 Nicotine dependence, unspecified, uncomplicated; Z79.899 Other long term (current) drug therapy
CPT/HCPCS: 36415; 80048; 80076; 80143; 80307; 80320; 81003; 85025; 87426; 99285; C9803; G0480

== ENCOUNTER 2021-12-08 17:32 | Emergency (ER) | payer OTHER ==
[~2021-12-08] VITALS: Ht 177.8 cm; Wt 65.8 kg
[~2021-12-08 17:32] MED LIST changes: -ACET-2605 PO; -AMOX-430 PO; -DIVA250T4 PO; +DIVA500T54 PO; +FLUO20CA42 PO
--- NOTE | 2021-12-08 17:34 | NUR ---
CALLED THE PATIENT IN THE WAITING ROOM - NO RESPONSE.
--- NOTE | 2021-12-08 17:57 | NUR ---
the patient was called - no answer
[2021-12-08 18:52] LABS: BILIRUBIN,URINE SMALL (NEGATIVE); COLOR,URINE DARK YELLOW (YELLOW); LEUKOCYTE ESTERASE ,URINE NEGATIVE (NEGATIVE); NITRITE, URINE NEGATIVE (NEGATIVE); PROTEIN,URINE NEGATIVE (NEGATIVE); UGLUCOSE NEGATIVE (NEGATIVE); UROBILINOGEN,URINE 0.2 EU/dL (0.2)
[2021-12-08 19:06] LABS: BACTERIA,URINE Rare /HPF (None Seen); RBC,URINE 0-2 /HPF (0-2); SQUAMOUS EPITHELIAL CELL,UR Few /HPF (None Seen); WBC,URINE 0-2 /HPF (0-3)
[2021-12-08 19:07] LABS: MUCUS,URINE Few /LPF (None Seen)
[2021-12-08 19:34] LABS: ALANINE AMINOTRANSFERASE 22 U/L (12-78); ALBUMIN 3.8 g/dL (3.4-5.0); ALKALINE PHOSPHATASE 100 U/L (46-116); ASPARTATE AMINOTRANSFERASE 18 U/L (15-37); BILIRUBIN,DIRECT 0.1 mg/dL (0.0-0.2); BILIRUBIN,TOTAL 0.5 mg/dL (0.2-1.0); CALCIUM, SERUM 9.2 mg/dL (8.5-10.1); CARBON DIOXIDE 31 mmol/L (21-32); CHLORIDE 104 mmol/L (98-107); CREATININE 0.9 mg/dL (0.6-1.3); GLUCOSE 98 mg/dL (74-106); SODIUM SERUM 138 mmol/L (136-145); UREA NITROGEN, BLOOD 12 mg/dL (7-18)
[2021-12-08 19:53] LABS: ACETAMINOPHEN < 0 ug/ml (10-30); ALCOHOL, BLOOD < 3 mg/dL (0-0)
[2021-12-08 19:58] LABS: BASOPHILS % (AUTO) 0.5 % (0.0-2.0); EOSINOPHILS % (AUTO) 0.7 % (0.0-6.0); HEMATOCRIT 43 % (39-51); HEMOGLOBIN 14.2 g/dL (13.5-17.5); LYMPHOCYTES # (AUTO) 2.3 K/uL (0.8-4.8); MEAN CORPUSCULAR HGB CONC 33 g/dl (31.0-36.0); MEAN CORPUSCULAR VOLUME 87 fL (80-96); MONOCYTES # (AUTO) 0.6 K/uL (0.1-1.30); MONOCYTES % (AUTO) 9.2 % (2.0-12.0); NEUTROPHILS # (AUTO) 3.8 K/uL (1.8-8.9); NEUTROPHILS % (AUTO) 55.6 % (43.0-81.0); PLATELET COUNT (AUTO) 395 K/uL (150-450); WHITE BLOOD COUNT (AUTO) 6.9 K/uL (4.3-11.0)
--- NOTE | 2021-12-08 20:46 | NUR ---
faxed face sheet and clinicals to [facility]
--- NOTE | 2021-12-08 23:12 | NUR ---
[facility] FOR TRANSPORT 20-30MIN ETA [facility]IA [facility]
--- NOTE | 2021-12-08 23:12 | NUR ---
PT IS ACCEPTED AT [facility] UNDER THE CARE OF DR. MERRILL. CALL [phone] FOR REPORT.
--- NOTE | 2021-12-08 23:14 | NUR ---
REPORT GIVEN TO MEREDITH JAMESON SUP FOR RAUL
--- NOTE | 2021-12-09 01:44 | NUR ---
PATIENT A, OX4. DENIED SI/HI AND REFUSED TO GO TO [facility] AMBULATORY WITH STEADY GAITS. MADE AWARE
[2021-12-09 01:49] VITALS: BP 135/70
== END 2021-12-09 01:49 | disposition home or self-care (01) ==
LOC: ER 17:34
DX: R45.851 Suicidal ideations (principal); F19.10 Other psychoactive substance abuse, uncomplicated; F31.9 Bipolar disorder, unspecified; Z20.822 Contact with and (suspected) exposure to COVID-19; F17.200 Nicotine dependence, unspecified, uncomplicated
CPT/HCPCS: 36415; 80048; 80076; 80143; 80307; 80320; 81001; 85025; 87426; 99285; C9803; G0480

== ENCOUNTER 2022-02-22 14:25 | Emergency (ER) | payer OTHER ==
[~2022-02-22] VITALS: Ht 167.6 cm; Wt 59.0 kg
--- NOTE | 2022-02-22 14:38 | NUR ---
DR HOLLINS AT BEDSIDE FOR EVAL.
[2022-02-22 14:40] VITALS: BP 133/92
--- NOTE | 2022-02-22 15:05 | NUR ---
E M ASSEMBLER AT BEDSIDE FOR BLOOD DRAW.
[2022-02-22 15:18] LABS: BASOPHILS % (AUTO) 0.7 % (0.0-2.0); EOSINOPHILS % (AUTO) 2.2 % (0.0-6.0); HEMATOCRIT 45 % (39-51); LYMPHOCYTES # (AUTO) 2.2 K/uL (0.8-4.8); LYMPHOCYTES % (AUTO) 32.4 % (20.0-44.0); MEAN CORPUSCULAR HGB CONC 33 g/dl (31.0-36.0); MEAN CORPUSCULAR VOLUME 90 fL (80-96); MONOCYTES # (AUTO) 0.6 K/uL (0.1-1.30); MONOCYTES % (AUTO) 9.2 % (2.0-12.0); NEUTROPHILS # (AUTO) 3.8 K/uL (1.8-8.9); NEUTROPHILS % (AUTO) 55.5 % (43.0-81.0); PLATELET COUNT (AUTO) 346 K/uL (150-450); WHITE BLOOD COUNT (AUTO) 6.8 K/uL (4.3-11.0)
[2022-02-22 15:28] LABS: BILIRUBIN,URINE NEGATIVE (NEGATIVE); COLOR,URINE YELLOW (YELLOW); LEUKOCYTE ESTERASE ,URINE NEGATIVE (NEGATIVE); NITRITE, URINE NEGATIVE (NEGATIVE); PH,URINE 6.5 (5.0-8.0); PROTEIN,URINE NEGATIVE (NEGATIVE); UGLUCOSE NEGATIVE (NEGATIVE)
[2022-02-22 15:31] LABS: CALCIUM, SERUM 8.5 mg/dL (8.5-10.1); CARBON DIOXIDE 25 mmol/L (21-32); CHLORIDE 104 mmol/L (98-107); CREATININE 0.8 mg/dL (0.6-1.3); GLUCOSE 81 mg/dL (74-106); POTASSIUM 3.9 mmol/L (3.5-5.1); SODIUM SERUM 138 mmol/L (136-145); UREA NITROGEN, BLOOD 8 mg/dL (7-18)
[2022-02-22 15:42] LABS: ALANINE AMINOTRANSFERASE 27 U/L (12-78); ALBUMIN 3.8 g/dL (3.4-5.0); ALCOHOL, BLOOD < 3 mg/dL (0-0); ALKALINE PHOSPHATASE 122 U/L (46-116); ASPARTATE AMINOTRANSFERASE 22 U/L (15-37); BILIRUBIN,DIRECT 0.1 mg/dL (0.0-0.2); BILIRUBIN,TOTAL 0.3 mg/dL (0.2-1.0); TOTAL PROTEIN, SERUM 7.4 g/dL (6.4-8.2)
[2022-02-22 16:02] LABS: ACETAMINOPHEN < 10 ug/ml (10-30)
[2022-02-22 17:15] LABS: BACTERIA,URINE None seen /HPF (None Seen); RBC,URINE 0-2 /HPF (0-2); SQUAMOUS EPITHELIAL CELL,UR 0-2 /HPF (None Seen); WBC,URINE 0-2 /HPF (0-3)
--- NOTE | 2022-02-22 18:11 | NUR ---
PT ELOPED. NOT IN HOLDING ROOM.
== END 2022-02-22 18:19 | disposition left against medical advice (07) ==
LOC: ER 14:32
DX: R45.851 Suicidal ideations (principal); F32.A Depression, unspecified; F17.200 Nicotine dependence, unspecified, uncomplicated; Z60.2 Problems related to living alone; Z79.899 Other long term (current) drug therapy
CPT/HCPCS: 36415; 80048-TC; 80076-TC; 81001; 85025-TC; G0480